=== PATIENT | male | born 1945 | race Hispanic/Latino ===

== ENCOUNTER 2022-04-10 17:55 | Observation (INO) | payer MEDICAID ==
[~2022-04-10] VITALS: Ht 165.1 cm; Wt 54.0 kg
--- NOTE | 2022-04-10 18:06 | NUR ---
PT AMBULATED TO [facility] BED, STABLE
--- NOTE | 2022-04-10 18:31 | NUR ---
Reassessment of patient completed. No distress noted. RENAL TRAY GIVEN
--- NOTE | 2022-04-10 19:30 | NUR ---
Reassessment of patient completed. No distress noted.
[2022-04-10 19:37] LABS: HEMATOCRIT 38.4 % (39.0-50.0); HEMOGLOBIN 11.8 g/dl (14.0-18.0); IMMATURE GRANULOCYTES 0.1 % (0.0-5.0); MEAN CELL VOLUME 106.1 fL CALC (80.0-100.0); MEAN CORPUSCULAR HGB 32.6 pG CALC (26.0-32.0); MEAN CORPUSCULAR HGB CONC 30.7 g/dL CAL (32.0-36.0); NEUT# 5.06 thou/uL (1.82-7.42); RED BLOOD COUNT 3.62 mill/uL (4.70-6.10); RED CELL DISTRI WIDTH 13.9 % (11.5-15.5)
[2022-04-10 19:58] LABS: ALBUMIN 4.8 g/dL (3.2-5.0); BILIRUBIN, TOTAL 0.5 mg/dL (0.0-1.4); POTASSIUM 4.9 mmol/l (3.5-5.1); TOTAL PROTEIN 7.5 g/dL (6.3-8.2)
[2022-04-10 20:06] LABS: CREATININE 12.1 mg/dL (0.7-1.3)
--- NOTE | 2022-04-10 20:26 | NUR ---
PATIENT TO DIALYSIS IN NAD. REPORT GIVEN.
--- NOTE | 2022-04-11 07:50 | NUR ---
pt awake and alert. denies c/o. eating hot breakfast heartily.
[2022-04-11 08:00] VITALS: BP 172/85
--- NOTE | 2022-04-11 08:00 | NUR ---
pt awake in bed; no apparent distress noted; assessment completed at this time; pt admits to headache, states because bp high; no n/v/blurred vision noted; resp even and unlabored; lungs clear; skin color wnl; ra; hr reg; strong pulses; no edema noted; abd soft with bs present; no bm noted; no urine to inspect at this time; dialysis fistula noted to left arm; plan of care/ dialysis explained; will continue to monitor
--- NOTE | 2022-04-11 09:30 | NUR ---
ACCESSED LUE FISTULA WITHOUT DIFFICULTY. GOOD PULSING BLOOD RETURN. VSS. PT TOLERATED WELL. INITIATED DIALYSIS ORDERED. SKIN PWD. RESP EVEN AND UNLABORED.NSR. DENIES SOB OR CP. UPDATED ON POC
--- NOTE | 2022-04-11 09:31 | NUR ---
dialysis started per Germán Merchant RN; will continue to monitor
--- NOTE | 2022-04-11 10:07 | NUR ---
pt resting in recliner; offers no complaints; tolerating dialysis well; will continue to monitor
--- NOTE | 2022-04-11 11:24 | NUR ---
resting with eyes closed in recliner; no apparent distress noted; tolerating dialysis well; will continue to monitor
--- NOTE | 2022-04-11 12:00 | NUR ---
awake in recliner; offers no complaints; tolerating dialysis well; lunch provided with permission of dialysis noted; will continue to monitor
[2022-04-11 12:15] VITALS: BP 150/83
[2022-04-11] MEDS ORDERED: NORVASC5 M1 PO (12:49)
[2022-04-11] MEDS ORDERED: HYDRALAZINE10 MG PO (12:50)
[2022-04-11] MEDS ORDERED: LISINOPRIL10 MG PO (12:50)
[2022-04-11] MEDS ORDERED: RENVELA800 MG PO (12:51)
--- NOTE | 2022-04-11 12:51 | NUR ---
dialysis completed; pt tolerated well; offers no complaints; weight obtained; assisted back to bed
--- NOTE | 2022-04-11 13:25 | NUR ---
Patient decides to leave AMA. Explained to patient all risks of leaving against medical advice including . Pt verbalized understanding of all risks. Pt also encouraged to return to [facility] at any time, especially if symptoms continue or become worse. Pt verbalized understanding. PATIENT PROVIDED TRANSPORTATION TO THE [facility]
[2022-04-11 13:56] LABS: ALBUMIN 4.3 g/dL (3.2-5.0); ALKALINE PHOSPHATASE 128 u/l (38-126); ANION GAP 24 (6-22 (CALC)); BILIRUBIN, TOTAL 0.4 mg/dL (0.0-1.4); CARBON DIOXIDE 20 mmol/l (22-30); CHLORIDE 93 mmol/l (95-108); GFR FOR AFR.AMER. 5 ML/MIN (>=60 (CALC)); GFR OTHER RACES 4 ML/MIN (>=60 (CALC)); MAGNESIUM 3.5 mg/dL (1.6-2.3); POTASSIUM 5.1 mmol/l (3.5-5.1); SGOT/AST 31 u/l (19-48); SODIUM 132 mmol/l (137-146); TOTAL PROTEIN 6.9 g/dL (6.3-8.2)
[2022-04-11 14:00] LABS: BUN 94 mg/dL (8-23); BUN/CREATININE RATIO 7 (12-20 (CALC))
[2022-04-11 14:01] LABS: CREATININE 12.7 mg/dL (0.7-1.3)
== END 2022-04-11 13:25 | disposition left against medical advice (07) ==
LOC: ED 17:55 → ED-I 18:57 → ED 19:22 → ANR-I 19:23
PROVIDERS: Nurse Practitioner; ADMIT Internal Medicine; ATTEND Internal Medicine
DX: I12.0 Hypertensive chronic kidney disease with stage 5 chronic kidney disease or end stage renal disease (principal); N18.6 End stage renal disease; Z99.2 Dependence on renal dialysis; D63.1 Anemia in chronic kidney disease; N25.81 Secondary hyperparathyroidism of renal origin; Z59.1 Inadequate housing; Z20.822 Contact with and (suspected) exposure to COVID-19
CPT/HCPCS: G0378; J1644

== ENCOUNTER 2022-08-03 11:20 | Emergency (ER) | payer MEDICAID ==
[~2022-08-03] VITALS: Ht 165.1 cm; Wt 81.4 kg
[2022-08-03 11:20] VITALS: BP 167/71
[~2022-08-03 11:20] MED LIST: HYDRALAZINE10 MG PO; LISINOPRIL10 MG PO; NORVASC5 M1 PO; RENVELA800 MG PO
== END 2022-08-03 14:33 | disposition home or self-care (01) ==
LOC: ED 11:20
DX: S90.32XA Contusion of left foot, initial encounter (principal); N18.6 End stage renal disease; W55.32XA Struck by other hoof stock, initial encounter; Y93.89 Activity, other specified; Y92.009 Unspecified place in unspecified non-institutional (private) residence as the place of occurrence of the external cause; Z99.2 Dependence on renal dialysis